=== PATIENT | female | born 1980 | race Caucasian/White ===

== ENCOUNTER 2017-05-23 23:23 | Emergency (ER) | payer OTHER ==
--- NOTE | 2017-05-23 23:47 | PDOC ---
History of Present Illness - General Chief Complaint: Pain, Acute Stated Complaint: EPIGASTRIC PAIN RADIATING INTO BACK Time Seen by Provider: 05/23/17 23:25 - History of Present Illness Initial Comments: This 36-year-old woman with a history of hypertension presents with several hour history of upper back pain. She had a brief episode of epigastric pain radiating to anterior chest approximately 3 hours prior to presentation; this improved with burping and worsened with movement and deep breathing. The anterior pain resolved spontaneously; at this point, patient became aware of sharp bilateral upper back pain worse with movement. Patient states that she has had a chronic problem with muscle spasms and that she chronically overuses her upper back muscles lifting 2-year-old son. She had mild shortness of breath when pain was sharp but no cough/persistent shortness of breath/ wheezing. She has had no lower extremity edema or tenderness. She has had no recent surgery or prolonged inactivity/travel. Since the patient is currently breast-feeding, she has not taken any medication for her pain No history of smoking; no history of DM/hyperlipidemia Past History - Past Medical History Allergies/Adverse Reactions: Allergies Allergy/AdvReac Type Severity Reaction Status Date / Time amoxicillin [Amoxicillin] Allergy Rash Verified 05/23/17 23:25 cherries Allergy Severe Uncoded 02/10/15 09:10 SEASONAL Allergy STUFFY NOSE Uncoded 02/10/15 09:10 Home Medications: Ambulatory Orders Labetalol HCl [Normodyne -] 300 mg PO BID 05/23/17 Tizanidine HCl 2 mg PO TID PRN #10 tablet 05/24/17 Anemia: No Asthma: Yes (SEASONAL) Cancer: No Cardiac Disorders: No CVA: No COPD: No CHF: No Dementia: No Diabetes: No GI Disorders: No Disorders: No HTN: No Hypercholesterolemia: No Liver Disease: No Seizures: No Thyroid Disease: No - Surgical History Abdominal Surgery: No Appendectomy: No Cardiac Surgery: No Cholecystectomy: No Lung Surgery: No Neurologic Surgery: No Orthopedic Surgery: No - Suicide/Smoking/Psychosocial Hx Smoking Status: No Smoking History: Never smoked Have you smoked in the past 12 months: No Number of Cigarettes Smoked Daily: 0 Hx Alcohol Use: No Drug/Substance Use Hx: No Substance Use Type: None Hx Substance Use Treatment: No Review of Systems - Review of Systems Able to Perform ROS?: Yes Comments:: 12 point review of systems is negative except for what is noted in the history of present illness *Physical Exam - Physical Exam Comments: GENERAL: Morbidly obese adult female, alert and oriented, in no respiratory distress , speaking in full sentences; pulse oximetry 100% on room air Heart rate 73, regular respiratory rate 16/min HEAD: Normal with no signs of trauma. EYES: PERRLA, EOMI, sclera anicteric, conjunctiva clear. ENT: Ears normal, nares patent, oropharynx clear without exudates. Moist mucous membranes. NECK: Normal range of motion, supple without lymphadenopathy, JVD, or masses. CHEST WALL: Upper back Pain reproduced with lateral rotation of torso and abduction of arms No crepitus or step offs LUNGS: Breath sounds equal, clear to auscultation bilaterally. No wheezes, and no crackles. HEART:Regular rate and rhythm, normal S1 and S2 without murmur, rub or gallop. ABDOMEN:.normal bowel sounds No guarding,tenderness or rebound.No masses No distention. EXTREMITIES: Normal range of motion, no edema. No clubbing or cyanosis. No erythema, or tenderness. NEUROLOGICAL: Cranial nerves II through XII grossly intact. Normal speech. No focal neurological deficits. MUSCULOSKELETAL: Back non-tender to palpation, no CVA tenderness SKIN: Warm, Dry, normal turgor, no rashes or lesions noted. PA and lateral chest x-ray reveals no evidence of infiltrate/effusion/ pneumothorax/masses; aorta is of normal caliber with clear knob Medical Decision Making - Medical Decision Making Clinical presentation of sharp, intermittent pain now located primarily in the upper back(bilateral periscapular area especially) in this 36-year-old woman with a history of hypertension most consistent with muscle spasm: Pain is clearly reproduced with movement of torso and arms. Of note, the patient has a history of muscle spasm episodes in the past. The patient is currently breast-feeding and prefers just to treat this supportively with warm compresses to the areas of pain. She is currently comfortable; however, she agrees to fill prescription for tizanidine and defer breast-feeding if she has severe episodes of muscle spasm. She should return here if she has shortness of breath, persistent anterior chest pain or cough. She should follow-up with her own doctor within the next 3-4 days. *DC/Admit/Observation/Transfer Diagnosis at time of Disposition: Spasm of back muscles - Discharge Dispostion Disposition: HOME Condition at time of disposition: Stable - Prescriptions Prescriptions: Tizanidine HCl 2 mg PO TID PRN #10 tablet PRN Reason: Muscle Spasms - Referrals - Patient Instructions Printed Discharge Instructions: DI for Muscle Strain Additional Instructions: Local warmth to area of muscle spasm Avoid strenuous activity involving upper body for the next few days Tizanidine 2 mg up to 3 times a day for muscle spasms if you decide not to breast-feed Return if you have persistent severe pain or shortness of breath Follow-up with your doctor within the next 3-4 days - Post Discharge Activity
[2017-05-24 01:26] VITALS: BP 154/99; PULSE 73; TEMP 98.4; BMI 40.8
== END 2017-05-24 01:29 | disposition home or self-care (01) ==
LOC: FER 23:23
DX: M62.830 Muscle spasm of back (principal)
CPT/HCPCS: 71046-TC-FY; 84703; 99281-25

== ENCOUNTER 2017-07-19 22:14 | Emergency (ER) | payer OTHER ==
[2017-07-19 22:38] VITALS: BP 160/104; PULSE 73; TEMP 97.6; BMI 41.5
--- NOTE | 2017-07-19 23:49 | PDOC ---
History of Present Illness - General Chief Complaint: Pain Stated Complaint: PAIN Time Seen by Provider: 07/19/17 23:47 History Source: Patient Exam Limitations: No Limitations - History of Present Illness Initial Comments: CHIEF COMPLAINT: 37 y/o afebrile female with PMH HTN c/o left sided low back pain radiating into her left buttock and left leg x 4 days. HISTORY OF PRESENT ILLNESS: The patient states she slipped on the wet floor in her bathroom 4 days ago and landed on her left buttock. She states at first the pain was bearable but it has worsened and today she cannot find a comfortable position. She has taken 440mg of aleve in the morning, 220mg of aleve at night and took 1 muscle relaxer at 9pm. She denies numbness/tingling of extremities, saddle anesthesia, bowel/bladder incontinence. Vital signs on arrival are within normal limits. REVIEW OF SYSTEMS: GENERAL/CONSTITUTIONAL: No fever/chills. No weakness. No weight change. GENITOURINARY: No dysuria, frequency, or change in urination. MUSCULOSKELETAL: +left low back pain. No joint or muscle swelling or pain. No neck pain. SKIN: No rash or easy bruising. NEUROLOGIC: No headache, vertigo, loss of consciousness, or loss of sensation. PHYSICAL EXAM: GENERAL: The patient is awake, alert, and fully oriented, in moderate discomfort with slowed movements. ABDOMEN: Soft, non-distended, non-tender even to deep palpation, no hepatomegaly or splenomegaly, no masses. BACK: No midline lumbar or sacral spine TTP or step offs. "pulling" pain reported with flexion of lumbar spine. TTP of left lumbar paravertebral muscles and left buttock EXTREMITIES: Normal range of motion, no edema. NEUROLOGICAL: Normal speech, normal gait. CN II-XII grossly intact. No saddle anesthesia. SKIN: Warm, dry, normal turgor, no rashes or lesions noted. Past History - Past Medical History Allergies/Adverse Reactions: Allergies Allergy/AdvReac Type Severity Reaction Status Date / Time amoxicillin [Amoxicillin] Allergy Rash Verified 07/19/17 22:39 cherries Allergy Severe Uncoded 07/19/17 22:39 SEASONAL Allergy STUFFY NOSE Uncoded 07/19/17 22:39 Home Medications: Ambulatory Orders Tizanidine HCl 2 mg PO TID PRN #10 tablet 05/24/17 Diazepam [Valium] 5 mg PO Q8H #12 tablet MDD 3 07/20/17 Ibuprofen 800 mg PO TID #20 tablet 07/20/17 Labetalol HCl 300 mg PO HS 07/20/17 Labetalol HCl [Normodyne -] 450 mg PO DAILY 07/20/17 Anemia: No Asthma: Yes (SEASONAL) Cancer: No Cardiac Disorders: No CVA: No COPD: No CHF: No Dementia: No Diabetes: No GI Disorders: No Disorders: No HTN: No Hypercholesterolemia: No Liver Disease: No Seizures: No Thyroid Disease: No - Surgical History Abdominal Surgery: No Appendectomy: No Cardiac Surgery: No Cholecystectomy: No Lung Surgery: No Neurologic Surgery: No Orthopedic Surgery: No - Suicide/Smoking/Psychosocial Hx Smoking Status: No Smoking History: Never smoked Have you smoked in the past 12 months: No Number of Cigarettes Smoked Daily: 0 Information on smoking cessation initiated: No Hx Alcohol Use: No Drug/Substance Use Hx: No Substance Use Type: None Hx Substance Use Treatment: No *Physical Exam - Vital Signs Last Vital Signs Temp Pulse Resp BP Pulse Ox 97.6 F 73 18 160/104 100 07/19/17 22:36 07/19/17 22:36 07/19/17 22:36 07/19/17 22:36 07/19/17 22:36 Medical Decision Making - Medical Decision Making A/P: 37 y/o female with left sided sciatic pain. Plan is as follows: 1. hcg 2. IM Toradol 3. PO valium hcg - negative Will discharge with rx for valium. Instructed her to discontinue use of her other prescribed muscle relaxer while taking valium. Informed her valium may cause drowsiness. Demonstrated stretching exercises. Instructed her to return to the ER with any worsening or concerning symptoms. The patient verbalizes understanding of all instructions, has no further questions and is awaiting discharge. *DC/Admit/Observation/Transfer Diagnosis at time of Disposition: Low back pain with sciatica Qualifiers: Chronicity: acute Back pain laterality: left Sciatica laterality: sciatica of left side Qualified Code(s): M54.42 - Lumbago with sciatica, left side - Discharge Dispostion Disposition: HOME Condition at time of disposition: Good - Prescriptions Prescriptions: Diazepam [Valium] 5 mg PO Q8H #12 tablet MDD 3 Ibuprofen 800 mg PO TID #20 tablet - Referrals Referrals: Marlyn Ricci MD [Primary Care Provider] - Call tomorrow - Patient Instructions Printed Discharge Instructions: DI for Back Pain With Sciatica Additional Instructions: Discharge Instructions: -2 medications have been sent to your pharmacy; please take as prescribed; while taking these DO NOT TAKE ALEVE OR YOUR OTHER MUSCLE RELAXER -Perform stretches 4-5 times per day -Follow up with your doctor within 1 week -Return to the ER with any worsening or concerning symptoms - Post Discharge Activity
--- NOTE | 2017-07-20 00:47 | PDOC ---
*Physical Exam - Vital Signs Last Vital Signs Temp Pulse Resp BP Pulse Ox 97.6 F 73 18 160/104 100 07/19/17 22:36 07/19/17 22:36 07/19/17 22:36 07/19/17 22:36 07/19/17 22:36 Medical Decision Making - Medical Decision Making 07/20/17 00:46 agree with care from [facility] *DC/Admit/Observation/Transfer Diagnosis at time of Disposition: Low back pain with sciatica - Discharge Dispostion Disposition: HOME Condition at time of disposition: Improved - Prescriptions Prescriptions: Diazepam [Valium] 5 mg PO Q8H #12 tablet MDD 3 Ibuprofen 800 mg PO TID #20 tablet - Referrals Referrals: Marlyn Ricci MD [Primary Care Provider] - Call tomorrow - Patient Instructions Printed Discharge Instructions: DI for Back Pain With Sciatica Additional Instructions: Discharge Instructions: -2 medications have been sent to your pharmacy; please take as prescribed; while taking these DO NOT TAKE ALEVE OR YOUR OTHER MUSCLE RELAXER -Perform stretches 4-5 times per day -Follow up with your doctor within 1 week -Return to the ER with any worsening or concerning symptoms - Post Discharge Activity
[2017-07-20] MEDS ORDERED: diazePAM 5 MG TABLET PO ONE (01:39)
[2017-07-20] MEDS ORDERED: KETOROLAC TROMETHAMINE 60 MG/2 ML VIAL IM ONE (01:39)
[2017-07-20] MEDS ORDERED: diazePAM 5 MG TABLET ONE (01:44)
[2017-07-20] MEDS ORDERED: KETOROLAC TROMETHAMINE 60 MG/2 ML VIAL ONE (01:44)
== END 2017-07-20 02:00 | disposition home or self-care (01) ==
LOC: JER 22:14
PROC: 3E0233Z Introduction of Anti-inflammatory into Muscle, Percutaneous Approach (ICD-10-PCS; principal; 2017-07-19)
DX: M54.42 Lumbago with sciatica, left side (principal); I10 Essential (primary) hypertension; J30.2 Other seasonal allergic rhinitis; Z88.8 Allergy status to other drugs, medicaments and biological substances; Z91.018 Allergy to other foods
CPT/HCPCS: 84703; 96372; 99282-25

== ENCOUNTER 2018-08-13 20:20 | Inpatient (IN) | payer OTHER | END 2018-08-17 13:00 | disposition home or self-care (01) | LOC: JLDR 20:20 → J3W 08-15 15:15 → JLDR 08-14 19:50 ==

== ENCOUNTER 2020-06-28 15:51 | Emergency (ER) | payer OTHER ==
[2020-06-28 16:07] VITALS: BP 158/97; PULSE 81; TEMP 98.4; BMI 41.5
[2020-06-28] MEDS ORDERED: BACITRACIN 15 GM TUBE TOPICAL OINTMENT TP ONE (17:34)
[2020-06-28] MEDS ORDERED: IBUPROFEN 600 MG TABLET (FP) PO ONE ×2 (17:34→17:45)
[2020-06-28] MEDS ORDERED: BACITRACIN 15 GM TUBE TOPICAL OINTMENT ONE (17:44)
== END 2020-06-28 18:11 | disposition home or self-care (01) ==
LOC: JER 15:51
DX: S50.02XA Contusion of left elbow, initial encounter (principal); M25.512 Pain in left shoulder
CPT/HCPCS: 73030-TC-LT-FY; 73070-TC-LT-FY; 84703; 99284-25

== ENCOUNTER 2020-10-24 18:45 | Emergency (ER) | payer OTHER ==
[2020-10-24 20:03] VITALS: BP 145/97; PULSE 101; TEMP 97; BMI 42.4
[2020-10-24] MEDS ORDERED: DEXAMETHASONE LIQUID 0.5 MG/5 ML PO ONE (22:13)
[2020-10-24] MEDS ORDERED: DEXAMETHASONE SOD PHOSPHATE 10 MG/1 ML VIAL ONE (22:14)
== END 2020-10-24 22:38 | disposition home or self-care (01) ==
LOC: JERFT 18:45
DX: M26.622 Arthralgia of left temporomandibular joint (principal)
CPT/HCPCS: 70330-TC-FY; 99283-25

== ENCOUNTER 2021-12-13 20:42 | Emergency (ER) | payer OTHER ==
[2021-12-13 20:50] VITALS: BMI 43.2
[2021-12-13 22:26] LABS: BASO % 0.7 % (0-2.0); EOS % 1.8 % (0-4.5); HEMATOCRIT 35.7 % (32.4-45.2); HEMOGLOBIN 11.8 GM/dL (10.7-15.3); LYMPH % 19.3 % (8-40); MCH 26.6 pg (25.7-33.7); MEAN CELL VOLUME 80.6 fl (80-96); MEAN PLT VOLUME 8.2 fl (7.5-11.1); MONO % 8.7 % (3.8-10.2); NEUT % 69.5 % (42.8-82.8); PLATELET COUNT 265 10^3/uL (134-434); RBC 4.43 M/mm3 (3.60-5.2); RDW 14.7 % (11.6-15.6); WHITE BLOOD COUNT 8.7 K/mm3 (4.0-10.0)
[2021-12-13 22:27] LABS: HCG,QUALITATIVE URINE Positive; URINE APPEARANCE CLEAR; URINE BILIRUBIN NEGATIVE (NEGATIVE); URINE COLOR YELLOW; URINE GLUCOSE (UA) NEGATIVE (NEGATIVE); URINE KETONE NEGATIVE (NEGATIVE); URINE LEUK ESTERASE NEGATIVE (NEGATIVE); URINE NITRITE NEGATIVE (NEGATIVE); URINE PROTEIN NEGATIVE (NEGATIVE); URINE UROBILINOGEN 0.2 mg/dL (0.2-1.0)
[2021-12-13 22:47] LABS: BLOOD UREA NITROGEN 9.5 mg/dL (7-18); CALCIUM 8.6 mg/dL (8.5-10.1)
[2021-12-13 22:50] LABS: CREATININE 0.7 mg/dL (0.55-1.3)
[2021-12-14 01:17] VITALS: BP 126/79; PULSE 83; RESP 20; TEMP 98.2
== END 2021-12-14 02:48 | disposition home or self-care (01) ==
LOC: JER 20:42
DX: O26.851 Spotting complicating pregnancy, first trimester (principal); Z3A.01 Less than 8 weeks gestation of pregnancy
CPT/HCPCS: 36415; 76817-TC; 80048; 81003; 84702; 84703; 85025; 86850; 86900; 86901; 87086; 99284-25

== ENCOUNTER 2021-12-16 19:59 | Emergency (ER) | payer OTHER ==
[2021-12-16 20:23] VITALS: BP 137/85; PULSE 98; RESP 20; TEMP 98.3; BMI 43.2
[2021-12-16] MEDS ORDERED: SODIUM CHLORIDE 0.9% 500 ML INFUS.BAG IV ONE (20:32)
[2021-12-16] MEDS ORDERED: ACETAMINOPHEN 1000 MG/100 ML BAG IVPB ONE (20:32)
[2021-12-16 21:06] LABS: EPI CELLS 11 /uL (0-25.1); HYALINE CASTS 1 /uL (0-3.1); PH,URINE 6.5 (5.0-8.0); URINE APPEARANCE CLOUDY; URINE BACTERIA 63 /uL (0-1359); URINE BILIRUBIN NEGATIVE (NEGATIVE); URINE COLOR ORANGE; URINE GLUCOSE (UA) NEGATIVE (NEGATIVE); URINE KETONE TRACE (NEGATIVE); URINE LEUK ESTERASE TRACE (NEGATIVE); URINE NITRITE NEGATIVE (NEGATIVE); URINE PROTEIN 1+ (NEGATIVE); URINE RBC 6825 /uL (0-23.9); URINE UROBILINOGEN 0.2 mg/dL (0.2-1.0); URINE WBC 12 /uL (0-25.8)
[2021-12-16] MEDS ORDERED: ACETAMINOPHEN INJECTION 100 ML IVPB ONE (21:56)
[2021-12-16 22:01] LABS: BASO % 0.4 % (0-2.0); EOS % 1.1 % (0-4.5); HEMATOCRIT 36.9 % (32.4-45.2); LYMPH % 16.1 % (8-40); MCH 26.1 pg (25.7-33.7); MCHC 32.5 g/dl (32.0-36.0); MEAN CELL VOLUME 80.3 fl (80-96); MEAN PLT VOLUME 8.3 fl (7.5-11.1); NEUT % 73.4 % (42.8-82.8); PLATELET COUNT 314 10^3/uL (134-434); RBC 4.59 M/mm3 (3.60-5.2); RDW 14.8 % (11.6-15.6); WHITE BLOOD COUNT 8.9 K/mm3 (4.0-10.0)
[2021-12-16 22:07] LABS: INR 1.05 (0.83-1.09); PROTHROMBIN TIME (PATIENT) 12.1 SEC (9.7-13.0)
[2021-12-16 22:10] LABS: ACTIVATED PTT 32.9 SECONDS (25.2-36.5)
[2021-12-16 22:30] LABS: ALBUMIN 3.4 g/dl (3.4-5.0); BLOOD UREA NITROGEN 10.3 mg/dL (7-18); CALCIUM 9.1 mg/dL (8.5-10.1); MAGNESIUM 2.2 mg/dL (1.8-2.4)
[2021-12-16 22:33] LABS: CREATININE 0.8 mg/dL (0.55-1.3)
[2021-12-16 22:35] LABS: BILIRUBIN,TOTAL 0.2 mg/dL (0.2-1); TOT PROT 8.2 g/dl (6.4-8.2)
== END 2021-12-16 23:37 | disposition home or self-care (01) ==
LOC: JER 19:59
PROC: 3E0333Z Introduction of Anti-inflammatory into Peripheral Vein, Percutaneous Approach (ICD-10-PCS; principal; 2021-12-16)
DX: O23.91 Unspecified genitourinary tract infection in pregnancy, first trimester (principal); O20.0 Threatened abortion; Z3A.01 Less than 8 weeks gestation of pregnancy
CPT/HCPCS: 36415; 76817-TC; 80053; 81003; 83735; 84702; 85025; 85610; 85730; 86850; 86900; 86901; 87086; 87186; 99285-25

== ENCOUNTER 2021-12-17 23:00 | Emergency (ER) | payer OTHER ==
[2021-12-17 23:17] VITALS: BP 131/85; PULSE 97; RESP 18; TEMP 99.1; BMI 43.2
[2021-12-18 00:46] LABS: BASO % 0.5 % (0-2.0); HEMATOCRIT 34.5 % (32.4-45.2); HEMOGLOBIN 11.5 GM/dL (10.7-15.3); LYMPH % 18.4 % (8-40); MCH 26.6 pg (25.7-33.7); MCHC 33.2 g/dl (32.0-36.0); MEAN CELL VOLUME 80.3 fl (80-96); MONO % 7.4 % (3.8-10.2); NEUT % 72.7 % (42.8-82.8); PLATELET COUNT 312 10^3/uL (134-434); RDW 14.3 % (11.6-15.6); WHITE BLOOD COUNT 9.3 K/mm3 (4.0-10.0)
[2021-12-18 01:10] LABS: ALBUMIN 3.4 g/dl (3.4-5.0); BLOOD UREA NITROGEN 13.6 mg/dL (7-18)
[2021-12-18 01:14] LABS: CREATININE 0.6 mg/dL (0.55-1.3)
[2021-12-18 01:15] LABS: BILIRUBIN,TOTAL 0.2 mg/dL (0.2-1); TOT PROT 7.8 g/dl (6.4-8.2)
== END 2021-12-18 02:05 | disposition home or self-care (01) ==
LOC: JER 23:00
DX: O03.9 Complete or unspecified spontaneous abortion without complication (principal)
CPT/HCPCS: 36415; 76830-TC; 80053; 84702; 85025; 99284-25

== ENCOUNTER 2023-05-18 11:45 | Inpatient (IN) | payer OTHER ==
[2023-05-18 13:07] LABS: HEMATOCRIT 33.7 % (32.4-45.2); HEMOGLOBIN 11.2 GM/dL (10.7-15.3); MCH 27.6 pg (25.7-33.7); MCHC 33.4 g/dl (32.0-36.0); MEAN CELL VOLUME 82.6 fl (80-96); MEAN PLT VOLUME 8.5 fl (7.5-11.1); PLATELET COUNT 243 10^3/uL (134-434); RBC 4.08 M/mm3 (3.60-5.2); RDW 13.7 % (11.6-15.6); WHITE BLOOD COUNT 8.9 K/mm3 (4.0-10.0)
[2023-05-18 13:26] LABS: POTASSIUM 4.5 mmol/L (3.5-5.1)
[2023-05-18] MEDS ORDERED: LABETALOL HCL 200 MG TABLET (FP) ONE ×2 (13:27→21:00)
[2023-05-18 13:28] LABS: ALBUMIN 2.5 g/dl (3.4-5.0); BLOOD UREA NITROGEN 11.1 mg/dL (7-18); CALCIUM 8.7 mg/dL (8.5-10.1)
[2023-05-18] MEDS: LABETALOL HCL 100 MG TABLET (FP) PO ONE (13:30)
[2023-05-18 13:32] LABS: CREATININE 0.6 mg/dL (0.55-1.3)
[2023-05-18 13:33] LABS: BILIRUBIN,TOTAL 0.2 mg/dL (0.2-1); TOT PROT 7.2 g/dl (6.4-8.2)
[2023-05-18 14:09] LABS: EPI CELLS 14 /uL (0-25.1); HYALINE CASTS 2 /uL (0-3.1); URINE APPEARANCE CLEAR; URINE BACTERIA 1717 /uL (0-1359); URINE BILIRUBIN NEGATIVE (NEGATIVE); URINE COLOR YELLOW; URINE GLUCOSE (UA) NEGATIVE (NEGATIVE); URINE KETONE NEGATIVE (NEGATIVE); URINE LEUK ESTERASE 2+ (NEGATIVE); URINE NITRITE NEGATIVE (NEGATIVE); URINE PROTEIN NEGATIVE (NEGATIVE); URINE RBC 14 /uL (0-23.9); URINE UROBILINOGEN 0.2 mg/dL (0.2-1.0); URINE WBC 167 /uL (0-25.8)
[2023-05-18] MEDS ORDERED: ACETAMINOPHEN 325 MG TABLET (FP) ONE (15:47)
[2023-05-18] MEDS: ACETAMINOPHEN 325 MG TABLET (FP) PO ONE (15:50)
[2023-05-18 17:13] VITALS: BMI 41.5
[2023-05-18] MEDS ORDERED: BETAMET ACET/BETAMET NA PH 30 MG/5 ML VIAL ONE (17:16)
[2023-05-18] MEDS: BETAMET ACET/BETAMET NA PH 30 MG/5 ML VIAL IM ONE (17:31)
[2023-05-18] MEDS ORDERED: hydrALAZINE HCL 20 MG/ML VIAL ONE (18:09)
[2023-05-18] MEDS: hydrALAZINE HCL 20 MG/ML VIAL IVPUSH ONE (18:25)
[2023-05-18] MEDS ORDERED: MAGNESIUM 4GM/H20 - 4 GM/100 ML IVPB IVPB ONE (19:02)
[2023-05-18] MEDS: ELECTROLYTE-148 SOLN 1,000 ML IV SCH (19:10)
[2023-05-18] MEDS ORDERED: MAGNESIUM SULFATE 20GM/500ML - 20 GM/500 ML INFUS.BAG ONE (19:17)
[2023-05-18] MEDS: MAGNESIUM 4GM/H20 - 4 GM/100 ML IVPB IVPB ONE (19:20)
[2023-05-18] MEDS: MAGNESIUM SULFATE 20GM/500ML - 20 GM/500 ML INFUS.BAG IV SCH (19:45)
[2023-05-18] MEDS ORDERED: OXYTOCIN 30 UNITS in 0.9% NS 30 UNIT/500 ML INFUS.BAG IVPB ONE (20:13)
[2023-05-18] MEDS: OXYTOCIN 30 UNITS in 0.9% NS 30 UNIT/500 ML INFUS.BAG IVPB SCH (20:15)
[2023-05-18] MEDS: LABETALOL HCL 200 MG TABLET (FP) PO SCH (21:00)
[2023-05-18] MEDS ORDERED: LABETALOL HCL 200 MG TABLET (FP) PO SCH (21:00)
[2023-05-18] MEDS: AMPICILLIN - 2 GM in SODIUM CHLORIDE 100 ML IVPB ONE (21:25)
[2023-05-18] MEDS ORDERED: NIFEdipine E.R 60 MG TABLET PO SCH (22:00)
[2023-05-18] MEDS ORDERED: CLINDAMYCIN 900 MG PREMIX IVPB 900 MG/50 ML BAG IVPB ONE (23:33)
[2023-05-18] MEDS: CLINDAMYCIN 900 MG PREMIX IVPB 900 MG/50 ML BAG IVPB SCH (23:40)
[2023-05-19 00:53] LABS: MAGNESIUM 4.4 mg/dL (1.8-2.4)
[2023-05-19 00:57] LABS: URIC ACID 4.6 mg/dL (2.6-7.2)
[2023-05-19] MEDS ORDERED: AMPICILLIN - 1 GM in SODIUM CHLORIDE 100 ML IVPB SCH (01:15)
[2023-05-19] MEDS ORDERED: OXYTOCIN 20 UNITS in 0.9% NS 20 UNIT/1,000 ML INFUS.BAG IV ONE ×2 (04:19→13:34)
[2023-05-19] MEDS ORDERED: MISOPROSTOL 200 MCG TABLET ONE (04:41)
[2023-05-19] MEDS ORDERED: LABETALOL HCL 200 MG TABLET (FP) ONE ×2 (04:52→13:34)
[2023-05-19] MEDS: MISOPROSTOL 200 MCG TABLET PR ONE (04:52)
[2023-05-19] MEDS ORDERED: IBUPROFEN 600 MG TABLET (FP) PO PRN (04:53)
[2023-05-19] MEDS ORDERED: ACETAMINOPHEN 325 MG TABLET (FP) PO PRN (04:53)
[2023-05-19] MEDS ORDERED: oxyCODONE HCL 5 MG TABLET PO PRN (04:53)
[2023-05-19] MEDS ORDERED: METHYLERGONOVINE MALEATE 0.2 MG/1 ML AMP IM PRN (04:53)
[2023-05-19] MEDS ORDERED: BISACODYL 10 MG SUPP.RECT RC PRN (04:53)
[2023-05-19] MEDS ORDERED: MAGNESIUM SULFATE 20GM/500ML - 20 GM/500 ML INFUS.BAG ONE (04:54)
[2023-05-19] MEDS: OXYTOCIN 20 UNITS in 0.9% NS 20 UNIT/1,000 ML INFUS.BAG IV SCH (05:00)
[2023-05-19 05:43] LABS: CORD BASE EXCESS -2.1 mmol/L (0-2); CORD HCO3 22.7 mmHg (20-29); CORD PCO2 38.9 mmHg (30-78); CORD pH 7.383 (7.14-7.44)
[2023-05-19 05:44] LABS: CORD BASE EXCESS -4.7 mmol/L (0-2); CORD HCO3 20.1 mmHg (20-29); CORD PCO2 37.1 mmHg (30-78); CORD pH 7.352 (7.14-7.44)
[2023-05-19] MEDS: PRENATAL VITAMINS W/ FOLIC ACID TABLET (FP) PO SCH (11:46)
[2023-05-19] MEDS ORDERED: PRENATAL VITAMINS W/ FOLIC ACID TABLET (FP) PO ONE (11:47)
[2023-05-19 11:52] LABS: HEMATOCRIT 32.1 % (32.4-45.2); HEMOGLOBIN 10.8 GM/dL (10.7-15.3); MCH 27.7 pg (25.7-33.7); MCHC 33.7 g/dl (32.0-36.0); MEAN CELL VOLUME 82.2 fl (80-96); MEAN PLT VOLUME 8.6 fl (7.5-11.1); PLATELET COUNT 248 10^3/uL (134-434); RDW 14.1 % (11.6-15.6); WHITE BLOOD COUNT 13.5 K/mm3 (4.0-10.0)
[2023-05-19 12:48] LABS: CHLORIDE 103 mmol/L (98-107); POTASSIUM 4.4 mmol/L (3.5-5.1); SODIUM 134 mmol/L (136-145)
[2023-05-19 12:51] LABS: ALBUMIN 2.4 g/dl (3.4-5.0); ANION GAP 8 mmol/L (4-13); BLOOD UREA NITROGEN 8.8 mg/dL (7-18); CO2 22 mmol/L (21-32); GLUCOSE,RANDOM 103 mg/dL (74-106)
[2023-05-19 12:53] LABS: SGPT/ALT 16 U/L (13-61)
[2023-05-19 12:54] LABS: CREATININE 0.6 mg/dL (0.55-1.3); SGOT/AST 12 U/L (15-37)
[2023-05-19 12:55] LABS: TOT PROT 6.9 g/dl (6.4-8.2)
[2023-05-19 12:56] LABS: BILIRUBIN,TOTAL 0.2 mg/dL (0.2-1)
[2023-05-19 12:57] LABS: ALK PHOS 120 U/L (45-117)
[2023-05-19 12:58] LABS: CALCIUM 6.9 mg/dL (8.5-10.1); MAGNESIUM 5.5 mg/dL (1.8-2.4)
[2023-05-19] MEDS ORDERED: NIFEdipine E.R. 30 MG TABLET PO ONE (16:27)
[2023-05-19] MEDS: NIFEdipine E.R. 30 MG TABLET PO ONE (16:30)
[2023-05-19] MEDS: NIFEdipine E.R 60 MG TABLET PO SCH (22:10)
[2023-05-19] MEDS: LABETALOL HCL 200 MG TABLET (FP) PO SCH (22:10)
[2023-05-19] MEDS: BENZOCAINE 20% 57 GM BOTTLE TP PRN (23:37)
[2023-05-19] MEDS: BENZOCAINE 28 GM HEMORRHOIDAL OINTMENT TP PRN (23:37)
[2023-05-19] MEDS: WITCH HAZEL 50% (TUCKS) 40 PAD/JAR PAD TP PRN (23:38)
[2023-05-20 06:34] LABS: BASO % 0.4 % (0-2.0); EOS % 1.7 % (0-4.5); HEMATOCRIT 29.6 % (32.4-45.2); LYMPH % 17.1 % (8-40); MCH 28.3 pg (25.7-33.7); MCHC 33.7 g/dl (32.0-36.0); MEAN PLT VOLUME 8.7 fl (7.5-11.1); MONO % 6.9 % (3.8-10.2); NEUT % 73.9 % (42.8-82.8); PLATELET COUNT 209 10^3/uL (134-434); RBC 3.53 M/mm3 (3.60-5.2); RDW 14.1 % (11.6-15.6); WHITE BLOOD COUNT 9.2 K/mm3 (4.0-10.0)
[2023-05-20 06:49] LABS: POTASSIUM 3.9 mmol/L (3.5-5.1)
[2023-05-20 06:52] LABS: ALBUMIN 2.2 g/dl (3.4-5.0); BLOOD UREA NITROGEN 10.3 mg/dL (7-18)
[2023-05-20 06:55] LABS: CREATININE 0.5 mg/dL (0.55-1.3)
[2023-05-20 06:56] LABS: BILIRUBIN,TOTAL 0.2 mg/dL (0.2-1); TOT PROT 6.2 g/dl (6.4-8.2)
[2023-05-20] MEDS ORDERED: SENNOSIDES/DOCUSATE COMBO (SENNA PLUS) TABLET (UD) PO PRN (22:00)
[2023-05-20] MEDS ORDERED: NIFEdipine E.R 60 MG TABLET PO SCH (22:00)
[2023-05-20] MEDS: NIFEdipine E.R 60 MG TABLET PO SCH (22:41)
[2023-05-21] MEDS ORDERED: LABETALOL HCL 200 MG TABLET (FP) PO SCH (16:00)
[2023-05-21] MEDS: LABETALOL PO SCH (16:07)
[2023-05-21] MEDS: NIFEdipine E.R 60 MG TABLET PO SCH (21:34)
[2023-05-21] MEDS: LABETALOL HCL 200 MG TABLET (FP) PO SCH (21:34)
[2023-05-22] MEDS: LABETALOL HCL 100 MG TABLET (FP) PO ONE (10:15)
[2023-05-22 17:46] VITALS: TEMP 98.3
[2023-05-22 18:37] VITALS: BP 139/88; PULSE 87; RESP 16
== END 2023-05-22 18:35 | disposition home or self-care (01) | DRG 560 ==
LOC: JDEL 11:45 → JLDR 15:58 → J3W 05-19 17:54
PROVIDERS: ADMIT Obstetrics & Gynecology; ATTEND Obstetrics & Gynecology
PROC: 10E0XZZ Delivery of Products of Conception, External Approach (ICD-10-PCS; principal; 2023-05-19)
DX: O10.92 Unspecified pre-existing hypertension complicating childbirth (principal); O99.12 Other diseases of the blood and blood-forming organs and certain disorders involving the immune mechanism complicating childbirth; D68.59 Other primary thrombophilia; Z3A.34 34 weeks gestation of pregnancy; Z37.0 Single live birth
CPT/HCPCS: 36415; 36600; 59025; 80053; 81003; 82803; 83735; 84550; 85025; 85027; 85384; 96372